=== PATIENT | female | born 1980 | race Hispanic/Latino ===

== ENCOUNTER 2023-02-16 17:51 | Emergency (ER) | payer OTHER, SELFPAY ==
[2023-02-16] VITALS (8 sets, daily range): BP systolic 163–205; BP diastolic 95–128; PULSE 51–67; RESP 15–23; TEMP 36.7–36.8; O2SAT 98–100; BMI 30.1
--- NOTE | 2023-02-16 18:16 | DI.RAD.S_ITS ---
PROCEDURE: XR CHEST 1V INDICATIONS: chest pain TECHNIQUE: One view of the chest was acquired. COMPARISON: None. FINDINGS: Surgical changes and devices: None. Lungs and pleura: Lungs are clear. No pleural effusions or pneumothorax. Mediastinum: Mediastinal contours appear normal. Heart size is normal. Bones and chest wall: No suspicious bony lesions. Overlying soft tissues appear unremarkable. IMPRESSION: Portable chest within normal limits for age. Dictated by: Bruce Gonzalez M.D. on 02/16/2023 at 17:44 Approved by: Bruce Gonzalez M.D. on 02/16/2023 at 17:45
--- NOTE | 2023-02-16 18:58 | ED.CHESTPAIN ---
HPI - Chest Pain General Chief Complaint: Chest Pain Stated Complaint: PCP ref EKG results Time Seen by Provider: 02/16/23 18:57 Source: patient and family Mode of arrival: Ambulatory Limitations: no limitations History of Present Illness HPI narrative: 42-year-old female smoker without other chronic medical history presents at the request of her primary care provider for evaluation of an abnormal EKG. She is been having some abnormal, sharp and stabbing left-sided chest pain off and on since March of 2021. She states it started when she lost her balance and was reaching forward and felt a pulling sensation in her ribs. She states it comes and goes with a mind of its own and there is no classic or obvious provocation or palliation nor radiation. She denies associated symptoms such as dizziness, weakness or lightheadedness. She is had no fever or chills nor nausea, vomiting or diarrhea. She is had abnormal EKGs that show T-wave inversions in V1 and V2 few times in the past. She is sent here for further evaluation. She is not currently having symptoms Related Data Allergies Allergy/AdvReac Type Severity Reaction Status Date / Time No Known Drug Allergies Allergy Verified 02/16/23 18:16 Review of Systems Review of Systems Narrative: GENERAL: Denies chills, fatigue, malaise, fever, sweats. HEENT: Denies sinus pain, ear pain, sore throat, difficulty swallowing, dizziness. RESPIRATORY: Denies dyspnea, cough, wheezing, hemoptysis, sputum. CARDIOVASCULAR: See HPI GASTROINTESTINAL: Denies nausea, vomiting, abdominal pain, diarrhea, constipation, melena. : Denies dysuria, frequency, incontinence, hematuria, urinary retention. MUSCULOSKELETAL: denies weakness, joint pain, or bony pain SKIN: Denies rash, skin lesions, or other NEUROLOGIC: Denies weakness, headache, numbness, change in speech, confusion, seizures, incoordination. PSYCHIATRIC: No concerning psychosocial issues. 12 point review of systems is negative except for those stated above Patient History Social History Smoking Status: Current some day smoker Smoking Status: Current some day smoker alcohol intake frequency: a few times a month Substance Use Type: does not use Exam Narrative Exam Narrative: GENERAL: [42] year old patient appears stated age. Well-developed patient, in mild distress. HEAD: Atraumatic. Normocephalic. EYES: Pupils equal round and reactive. Extraocular motions intact. No scleral icterus. No injection or drainage. ENT: Nose without bleeding, purulent drainage. Throat without erythema, tonsillar hypertrophy or exudate. Airway patent. NECK: Trachea midline. Non tender CARDIOVASCULAR: Regular rate and rhythm without murmurs, gallops, or rubs. RESPIRATORY: Clear to auscultation. Breath sounds equal bilaterally. No wheezes, rales, or rhonchi. GASTROINTESTINAL: Abdomen soft, non-tender, nondistended. EXTREMITIES: No edema or joint tenderness. BACK: Nontender without deformity or crepitance. No flank tenderness. NEURO: AOx3. SKIN: No rash or erythema of visible areas Initial Vital Signs Initial Vital Signs: Vital Signs Temperature 98.1 F 02/16/23 18:10 Pulse Rate 67 02/16/23 18:10 Respiratory Rate 18 02/16/23 18:10 Blood Pressure 201/99 H 02/16/23 18:10 Pulse Oximetry 100 02/16/23 18:10 Oxygen Delivery Method Room Air 02/16/23 18:10 Scores HEART Score Heart Score history: Slightly Suspicious Heart Score EKG: Non-Specific repolarization disturbance Heart Score Age: < 45 years old Heart Score risk factors: No known risk factors Heart Score troponin: < or = to normal limit Heart Score Total: 1 Course Orders Ordered: ED Orders 02/16/23 18:16 XR chest 1V Stat EKG-12 Lead Stat 02/16/23 18:53 Complete Blood Count AUTO DIFF Stat Comprehensive Metabolic Panel Stat D Dimer Stat Lipase Stat Magnesium Stat PTT Partial Thromboplastin Toan Stat Prothrombin Time INR Stat Troponin & CK Cardiac Panel Stat Vital Signs Vital signs: Vital Signs - 8 hr 02/16/23 21:41 02/16/23 21:41 02/16/23 21:42 Temperature 98.3 F Pulse Rate 67 Respiratory Rate 20 Blood Pressure 178/107 H 188/108 H 178/111 H Pulse Oximetry Oxygen Delivery Method Room Air 02/16/23 21:42 02/16/23 22:00 02/16/23 22:00 Temperature Pulse Rate 52 L 51 L Respiratory Rate 23 15 Blood Pressure 175/95 H Pulse Oximetry 100 98 Oxygen Delivery Method 02/16/23 22:30 02/16/23 22:30 02/16/23 23:00 Temperature Pulse Rate 51 L Respiratory Rate 21 Blood Pressure 168/101 H 163/106 H Pulse Oximetry 98 Oxygen Delivery Method 02/16/23 23:00 02/16/23 23:30 02/16/23 23:30 Temperature Pulse Rate 53 L 63 Respiratory Rate 19 22 Blood Pressure 205/128 H Pulse Oximetry 99 99 Oxygen Delivery Method Room Air 02/16/23 23:51 Temperature Pulse Rate 52 L Respiratory Rate 16 Blood Pressure 178/100 H Pulse Oximetry 99 Oxygen Delivery Method Room Air MDM - Chest Pain Lab Data 02/16/23 18:53 02/16/23 18:53 Labs: Lab Results 02/16/23 02/16/23 02/16/23 Range/Units 18:53 18:53 18:53 WBC 6.2 (4.5-11.0) X10^3/uL RBC 4.30 (4.0-5.2) X10^6/uL Hgb 13.0 (12.0-16.0) g/dL Hct 38.0 (36-46) % MCV 88.3 (80-100) fL MCH 30.3 (26-34) PG MCHC 34.3 (30-36) % RDW 13.3 (11.6-14.8) % Plt Count 267 (150-400) X10^3/uL Neut % (Auto) 60.4 (50-75) % Lymph % (Auto) 30.3 (25-40) % [place] % (Auto) 6.4 (3-14) % Eos % (Auto) 2.7 (2-4) % Baso % (Auto) 0.2 (0-2) % Neut # (Auto) 3800 (7801-1023) /uL Lymph # (Auto) 1900 (4943-9757) /uL [place] # (Auto) 400 (0-900) /uL Eos # (Auto) 200 (0-450) /uL Baso # (Auto) 0 (0-100) /uL PT 11.2 (10.1-12.7) SECONDS INR 1.0 (0.9-1.3) APTT 30 (26-36) SECONDS D-Dimer (<500) ng/ml Sodium 136 L (137-145) mmol/L Potassium 3.6 (3.4-5.1) mmol/L Chloride 104 (98-107) mmol/L Carbon Dioxide 21 L (22-32) mmol/L BUN 10 (7-17) mg/dL Creatinine 0.68 (0.52-1.04) mg/dL Estimated GFR > 60 (>60) mL/min BUN/Creatinine Ratio 14.7 (6-22) Glucose 97 (70-100) mg/dL Calcium 8.5 (8.4-10.2) mg/dL Magnesium 2.3 (1.6-2.3) mg/dL Total Bilirubin 0.6 (0.2-1.3) mg/dL AST 37 H (14-36) IU/L ALT 29 (<35) IU/L Alkaline Phosphatase 52 (38-126) U/L Total Creatine Kinase 101 (30-135) U/L Troponin I < 0.012 (0.01-0.034) ng/mL Total Protein 8.0 (6.3-8.2) g/dL Albumin 4.5 (3.5-5.0) g/dL Globulin 3.5 (1.7-4.1) g/dL Albumin/Globulin Ratio 1.3 (1.0-2.8) Lipase 72 (23-300) U/L 02/16/23 Range/Units 18:53 WBC (4.5-11.0) X10^3/uL RBC (4.0-5.2) X10^6/uL Hgb (12.0-16.0) g/dL Hct (36-46) % MCV (80-100) fL MCH (26-34) PG MCHC (30-36) % RDW (11.6-14.8) % Plt Count (150-400) X10^3/uL Neut % (Auto) (50-75) % Lymph % (Auto) (25-40) % [place] % (Auto) (3-14) % Eos % (Auto) (2-4) % Baso % (Auto) (0-2) % Neut # (Auto) (0483-3795) /uL Lymph # (Auto) (7215-4586) /uL [place] # (Auto) (0-900) /uL Eos # (Auto) (0-450) /uL Baso # (Auto) (0-100) /uL PT (10.1-12.7) SECONDS INR (0.9-1.3) APTT (26-36) SECONDS D-Dimer 345 (<500) ng/ml Sodium (137-145) mmol/L Potassium (3.4-5.1) mmol/L Chloride (98-107) mmol/L Carbon Dioxide (22-32) mmol/L BUN (7-17) mg/dL Creatinine (0.52-1.04) mg/dL Estimated GFR (>60) mL/min BUN/Creatinine Ratio (6-22) Glucose (70-100) mg/dL Calcium (8.4-10.2) mg/dL Magnesium (1.6-2.3) mg/dL Total Bilirubin (0.2-1.3) mg/dL AST (14-36) IU/L ALT (<35) IU/L Alkaline Phosphatase (38-126) U/L Total Creatine Kinase (30-135) U/L Troponin I (0.01-0.034) ng/mL Total Protein (6.3-8.2) g/dL Albumin (3.5-5.0) g/dL Globulin (1.7-4.1) g/dL Albumin/Globulin Ratio (1.0-2.8) Lipase (23-300) U/L MDM Narrative Medical decision making narrative: CC: 42-year-old female with abnormal EKG and 2 years of chest pain Complicating co-morbidities: 2 years of chest pain and abnormal EKG Data collected from: Patient Medical records reviewed: Prior notes reviewed in our EMR Differential considered, but not limited to: cardiac ischemia vs. pulmonary embolism vs. pneumonia vs. rib injury Exam documented above, pertinent findings include: Lab Test results independently reviewed as above. Pertinent findings: Independently reviewed EKG as above Imaging studies independently reviewed: CXR with no acute process Scores Used: HEART Discussion: Otherwise healthy 42-year-old female with episodes of sharp and stabbing left-sided chest pain since an injury 2 years ago sent by PCP for evaluation abnormal EKG. She is had T-wave inversions few leads of an EKG for multiple years. Cardiac ischemia considered but thought unlikely as she has no exertional symptoms, no evolving or dynamic EKG changes, negative troponin, no cardiac equivalent such as dizziness, weakness, lightheadedness, shortness of breath, unexplained diaphoresis or vomiting. No evidence of pneumonia, pneumothorax or rib fracture. History and physical exam most consistent with a musculoskeletal element given her symptoms started after injury a few years ago, possibly cartilaginous versus other. Patient appropriate for discharge. Given the abnormal EKG she will follow up with her primary care provider and we discussed the possible utility of an outpatient cardiac evaluation including stress test and/or echocardiogram as her primary care provider sees fit. Return precautions discussed Disposition: see below, along with detailed discharge instructions that have been reviewed with patient as well as indications for ED re-evaluation and additional outpatient follow up Discharge Plan Departure Patient Disposition: Home Clinical Impression: Atypical chest pain Instructions: DI for Atypical Chest Pain Activity Restrictions/Additional Instructions: *You have been diagnosed with [atypical chest pain. As we discussed her EKG remains atypical presentation but similar to priors. Your labs are unremarkable and there is no evidence of heart attack, blood clot, pneumonia or other significant diagnosis that would require specific intervention] *What to do: *Please continue to take your regular medications as directed. [ ] New medication prescriptions sent to your pharmacy: [ ] [ ] New medication written as a paper prescription [ ] No new medications given *Please follow up with your primary care provider in 2-3 days, call for an appointment. Let them know you were seen in the Emergency Department and that we ask that you be seen in follow up. We will electronically transmit a record of today's note if your PCP is in our system *Return to Emergency Department if you should have any new, worsening or concerning symptoms, such as [fever greater than 101 F, shaking chills, worsening pain, persistent vomiting or other bothersome symptoms] Referrals: Miscellaneous,Doctor, [Primary Care Provider] - Stand Alone Forms: Patient Portal/API
[2023-02-16 19:02] LABS: Add Manual Diff / Slide Review NO; Basophils Absolute Auto 0 /uL (0-100); Basophils Percent Auto 0.2 % (0-2); Eosinophils Absolute Auto 200 /uL (0-450); Eosinophils Percent Auto 2.7 % (2-4); Lymphocytes Absolute Auto 1900 /uL (1100-4500); Lymphocytes Percent Auto 30.3 % (25-40); Mean Corpuscular HGB Conc 34.3 % (30-36); Mean Corpuscular Hemoglobin 30.3 PG (26-34); Mean Corpuscular Volume 88.3 fL (80-100); Monocytes Absolute Auto 400 /uL (0-900); Monocytes Percent Auto 6.4 % (3-14); Neutrophils Absolute Auto 3800 /uL (1500-7000); Neutrophils Percent Auto 60.4 % (50-75); Platelet Count 267 X10^3/uL (150-400); Red Cell Distribution Width 13.3 % (11.6-14.8); White Blood Cell Count 6.2 X10^3/uL (4.5-11.0)
[2023-02-16 19:11] LABS: Prothrombin Time 11.2 SECONDS (10.1-12.7)
[2023-02-16 19:14] LABS: Alanine Aminotransferase 29 IU/L (<35); Albumin 4.5 g/dL (3.5-5.0); Albumin Globulin Ratio 1.3 (1.0-2.8); Alkaline Phosphatase 52 U/L (38-126); Aspartate Aminotransferase 37 IU/L (14-36); BUN Creatinine Ratio 14.7 (6-22); Bilirubin Total 0.6 mg/dL (0.2-1.3); Blood Urea Nitrogen 10 mg/dL (7-17); Calcium 8.5 mg/dL (8.4-10.2); Carbon Dioxide 21 mmol/L (22-32); Chloride 104 mmol/L (98-107); Creatine Kinase 101 U/L (30-135); Estimated Glomerular Filt Rate > 60 mL/min (>60); Globulin 3.5 g/dL (1.7-4.1); Glucose 97 mg/dL (70-100); HEMOLYSIS < 15 (0-50); Lipase 72 U/L (23-300); Magnesium 2.3 mg/dL (1.6-2.3); PTT Partial Thromboplastin Tim 30 SECONDS (26-36); Potassium 3.6 mmol/L (3.4-5.1); Sodium 136 mmol/L (137-145)
[2023-02-16 19:21] LABS: D Dimer 345 ng/ml (<500)
[2023-02-16 19:25] LABS: Troponin I < 0.012 ng/mL (0.01-0.034)
== END 2023-02-17 00:07 | disposition home or self-care (01) ==
PROVIDERS: Emergency Provider Emergency Medicine
DX: R07.89 Other chest pain (principal)
CPT/HCPCS: 36415; 71045; 80053; 82550; 83690; 83735; 84484; 85025; 85379; 85610; 85730; 93005; 93010; 99284

== ENCOUNTER → 2023-06-15 | Outpatient (CLI) | payer OTHER, SELFPAY ==
--- NOTE | 2023-06-15 | DI.NM.S_ITS ---
PROCEDURE: NM EXERCISE TREADMILL NON NUC COMPARISON: None. INDICATIONS: chest pain, unspecified FINDINGS: The patient exercised for 10 minutes and 19 seconds reaching 97% of maximum predicted heart rate (12.8METs, RAMA -16%). No angina and no ST changes with exercise or during recovery. IMPRESSION: Low risk, normal treadmill ECG only stress test from inducible ischemia standpoint with good exercise capacity (RAMA -16%). Dictated by: Adrián Bauer MD on 06/15/2023 at 17:02 Approved by: Adrián Bauer MD on 06/15/2023 at 17:04
== END ==
LOC: RAD 15:11
PROVIDERS: Referring Provider Family Medicine; Visit Provider Family Medicine
DX: R07.9 Chest pain, unspecified (principal); I10 Essential (primary) hypertension
CPT/HCPCS: 93017